=== PATIENT | male | born 1965 | race Two or more races ===

== ENCOUNTER 2024-11-28 16:47 | Emergency (ER) | payer MEDICAID, SELFPAY ==
--- NOTE | 2024-11-28 17:19 | XR_ITS ---
Examination: CT cervical spine without contrast 2-D sagittal reconstructions 2-D coronal reconstructions 3-D reconstructions. Exam date and time:November 28, 2024 1807 hours INDICATIONS: Onset generalized neck pain beginning 8 days ago CTDI:vol (mGy) 15.6 DLP: (mGycm) 398 Technique: Multiple 2 mm axial sections of the cervical spine have been obtained. The coronal and sagittal reconstructions have been obtained. 3-D reconstructions have been obtained. Low dose protocols were performed. One or more of the following dose reduction techniques were used; automated exposure control, adjustment of the mA and/or KV according to patient size, use of iterative reconstruction technique. Findings: Axial sections demonstrate intact base of the skull. C1 exhibit satisfactory relationship to the odontoid. No acute cervical vertebral body fracture seen. Alignment posterior spinous processes satisfactory. C5-C6 moderate bilateral neural foraminal stenosis Impression: No acute cervical fracture. C5-C6 moderate bilateral neuroforaminal stenosis MRI cervical spine without contrast follow-up would best assess full extent of acquired soft tissue spinal stenosis
--- NOTE | 2024-11-28 17:19 | PD.EDRME ---
Rapid Medical Screening Exam RME Arrival date/time: 11/28/24 16:47 58-year-old male presents emergency department complaints of neck pain worse with movement ongoing for more than a week patient reports no direct trauma Chief Complaint: Neck Pain/Injury Time Seen by Provider: 11/28/24 17:15
[2024-11-28 17:24] VITALS: BP 116/78; PULSE 74; RESP 16; TEMP 36.9; O2SAT 95; BMI 33.2
[2024-11-28] MEDS: DIAZEPAM 5 MG TABLET 10 MG PO (17:56)
[2024-11-28] MEDS: KETOROLAC INJ 30 MG/ML VIAL IM (17:56)
--- NOTE | 2024-11-28 20:20 | EDNOTE_ITS ---
ED Neck Injury Pain RME/HPI General Chief Complaint: Neck Pain/Injury Stated Complaint: neck and left shoulder pain Time Seen by Provider: 11/28/24 17:15 Arrival date/time: 11/28/24 16:47 RME / HPI RME / HPI Narrative: 58-year-old male presents emergency department complaints of neck pain worse with movement ongoing for more than a week patient reports no direct trauma. Pain is described as dull ache, severity mild. Patient denies any fever. Denies any upper or lower extremity weakness. Denies any numbness to the upper extremity also. Related Data Previous Rx's ?Medication ?Instructions ?Recorded cyclobenzaprine 10 mg tablet 10 mg PO TID PRN muscle s pasm #30 11/28/24 tabs ibuprofen 800 mg tablet 800 mg PO TID PRN pain #30 t abs 11/28/24 Allergies Allergy/AdvReac Type Severity Reaction Status Date / Time NKA* Allergy Uncoded 11/28/24 16:49 Review of Systems Review of Systems Narrative Review of Systems: Review of system reviewed and within normal limits except mentioned in HPI ED Exam Narrative Physical exam: VITAL SIGNS: Reviewed. GENERAL APPEARANCE: Alert and interactive, follows commands, no acute distress, HEAD AND FACE: Non-traumatic. ENT: PERRL, pink conjunctivitis, eyelid no trauma, Mucous membrane moist. NECK: Supple, posterior neck tenderness, no nuchal rigidity. CHEST: No tenderness, no crepitus, no paradoxical movement, no retractions. LUNGS: Clear, well ventilated, symmetric, no rales, no wheezing, no ronchi, no stridor, good breath sounds bilaterally. HEART: Regular rate, regular rhythm, no murmur, no gallops. ABDOMEN: Soft, positive bowel sounds, nondistended, no guarding, nontender, no rebound, no masses, RECTAL: Deferred. GENITAL: Deferred. NEUROLOGICAL: Gross motor function intact sensory function intact, Appropriate for age. MUSCULOSKELETAL: low back nontender, full range of motion. EXTREMITIES: Nontender, full range of motion. SKIN: Color pink, dry, no rash, no lacerations, no abrasions, no contusions. LYMPHATICS: Deferred. Course Quality Measures none Orders Category Date Time Status CT cervical spine wo con Stat Exams 11/28/24 17:19 Completed Diazepam [Valium] Med 11/28/24 17:19 Discontinued 10 mg PO X1 ONE Ketorolac Inj [Toradol Inj] Med 11/28/24 17:19 Discontinued 30 mg IM X1 ONE Vital Signs Vital signs: Vital Signs Temperature 98.4 F 11/28/24 17:24 Pulse Rate 74 11/28/24 17:24 Respiratory Rate 16 11/28/24 17:24 Blood Pressure 116/78 11/28/24 17:24 Pulse Oximetry (%) 95 11/28/24 17:24 Oxygen Delivery Method Room Air 11/28/24 17:24 Neck Pain [facility] Narrative [facility] Narrative:: 58-year-old male presents emergency department complaints of neck pain worse with movement ongoing for more than a week patient reports no direct trauma. Pain is described as dull ache, severity mild. Patient denies any fever. Denies any upper or lower extremity weakness. Denies any numbness to the upper extremity also. CT scan of the neck came back with no acute fracture or dislocation except for possible neuroforaminal stenosis. Otherwise unremarkable. Results discussed with the patient and family. Patient appears nontoxic and hemodynamically stable. Patient discharged home and instructed to follow-up with primary care provider in 24 to 48 hours. Instructed to return to the emergency department immediately if worsening of symptoms Patient data External records reviewed:: None Clinical information provided by:: patient Social determinants that could affect healthcare access:: none Patient has the following chronic illnesses:: none How is presenting disease/condition affected by chronic disease/condition?: no chronic disease Evaluation data The following diagnostics were reviewed and interpreted by me:: radiology exam(s) Lab and/or radiology exams considered but not ordered:: none Interpretation Summary: See results in MDM Medications / Prescriptions Medications or Prescriptions considered but not ordered:: None Medication administrations:: Medication Administration History Discontinued Medications Diazepam (Diazepam 5 Mg Tablet) 10 mg PO X1 ONE Stop: 11/28/24 17:20 Last Admin: 11/28/24 17:56 Dose: 10 mg Documented By: Ketorolac Tromethamine (Ketorolac Inj 30 Mg/Ml Vial) 30 mg IM X1 ONE Stop: 11/28/24 17:20 Last Admin: 11/28/24 17:56 Dose: 30 mg Documented By: Valium and Toradol Consultations Consultation(s) initiated? (list below): No Diagnosis Neck Differential Diagnosis: whiplash injury to neck, cervical radiculopathy, torticollis and cervical spondylosis Most likely diagnosis given after review of the tests above:: Cervical spondylosis Admission Indicated Admission indicated?: not indicated Explain why admission is indicated or not indicated:: Stable Admission Request Was there a request for admission?: No Disposition Plan Disposition Plan: Discharge Discharge Attestation Discharge Attestation: The patient and all family members were given an opportunity to ask questions and understood the discharge instructions. Discharge instructions specifically effects, indications for sooner follow up or return to the emergency department, and the expected course of current diagnosis. Patient condition: Stable Discharge Plan Plan Patient Disposition: HOME (Self Care) Disposition Comment: stable Prescriptions/Referrals Prescriptions/Med Rec: New ibuprofen 800 mg tablet 800 mg PO TID PRN (Reason: pain) Qty: 30 0RF cyclobenzaprine 10 mg tablet 10 mg PO TID PRN (Reason: muscle spasm) Qty: 30 0RF Referrals: No Primary/Family,Physician [Primary Care Provider] - In 1 week Problem List Clinical Impression: Cervical spondylosis Patient/Caregiver Discharge Instructions Discharge Activity: activity as tolerated Education Materials: ED Neck Pain Additional Instructions: Thank you for the opportunity for serving you today. You are stable for discharged . You are advised to: Follow-up with your PCP in 1 to 2 days Return to ED for worsening of symptoms Increase oral fluids Take medication as prescribed Print Language: Dutch Stand Alone Forms: Yesenia Award Info., Patient Portal Info Letter ROSALINE/MARILYN Supervising Physician ROSALINE/MARILYN Supervising Physician: Md Obi
[2024-11-28 20:29] VITALS: PULSE 878; RESP 18; TEMP 36.6; O2SAT 99
== END 2024-11-28 20:30 | disposition home or self-care (01) ==
PROVIDERS: Emergency Provider Emergency Medicine
DX: M47.812 Spondylosis without myelopathy or radiculopathy, cervical region (principal)
CPT/HCPCS: 72125; 96372; 99284; J1885; A9270